=== PATIENT | male | born 1985 | race Caucasian/White ===

== ENCOUNTER → 2019-01-15 | Outpatient (CLI) | payer OTHER | LOC: M.ULTRA 08:58 | DX: K76.0 Fatty (change of) liver, not elsewhere classified (principal); R10.13 Epigastric pain ==

== ENCOUNTER → 2019-01-17 | Outpatient (CLI) | payer OTHER | LOC: M.CT 10:51 | DX: Z13.6 Encounter for screening for cardiovascular disorders (principal) ==